=== PATIENT | female | born 1975 | race Caucasian/White ===

== ENCOUNTER 2018-03-20 22:10 | Emergency (ER) | payer OTHER ==
[~2018-03-20] VITALS: Ht 157.5 cm; Wt 79.4 kg
[~2018-03-20 22:10] MED LIST: AVELOX400 M1 PO; BENTYL10 M1 PO; ESGIC 50-325-41 EACH PO; GLIPIZIDE ER10 M1 PO; GLIPIZIDE ER5 MG PO; IBUPROFEN800 M1 PO; JANUMET 50-1,01 EACH PO; KEFLEX250 M1 PO; LEVOCETIRIZINE D5 M1 PO; LISINOPRIL2.5 M1 PO; MIRENA1 EACH; NASONEX17 GM NASB; PANTOPRAZOLE SO40 M1 PO; PRAVASTATIN SOD20 M2 PO; PRAVASTATIN20 MG PO; PRINIVIL 5MG5 MG PO; REGLAN10 M1 PO; VITAMIN D2000 UNI1 PO; VITAMIN D32000 I1 PO; VITAMIN D50000 IU PO; ZOFRAN ODT4 M1 SL
[2018-03-20 22:16] VITALS: BP 121/81
[2018-03-20 22:52] LABS: ABSOLUTE BASOPHIL COUNT 0.1 /CUMM (0.0-0.2); ABSOLUTE EOSINOPHIL COUNT 0 /CUMM (0.0-0.7); ABSOLUTE GRANULOCYTE CT 9.5 /CUMM (1.4-6.5); ABSOLUTE LYMPH COUNT 2.8 /CUMM (1.2-3.4); ABSOLUTE MONOCYTE COUNT 0.3 /CUMM (0.10-0.60); BASOPHIL % 0.5 % (0.0-2.0); EOSINOPHIL % 0.3 % (0-5); GRANULOCYTE % 74.8 % (42.2-75.2); HEMATOCRIT 38.6 % (37-47); MEAN CORPUSCULAR HGB 30.5 PG (27.0-31.0); MEAN CORPUSCULAR HGB CONC 34.2 G/DL (33.0-37.0); MEAN CORPUSCULAR VOLUME 89.3 FL (81.0-99.0); MEAN PLATELET VOLUME 7.5 FL (7.4-10.4); PLATELET COUNT 327 /CUMM (130-400); RBC DISTRIBUTION WIDTH 12.8 % (11.5-14.5); RED BLOOD CELL CT 4.32 /CUMM (4.20-5.40); WHITE BLOOD CELL COUNT 12.8 /CUMM (4.8-10.8)
--- NOTE | 2018-03-20 23:38 | ED GENERAL ADULT ---
History of Present Illness General Chief Complaint: General Adult Stated Complaint: PT THINKS SHE IS DEHYDRATED Source: patient Exam Limitations: no limitations Vital Signs & Intake/Output Vital Signs & Intake/Output Vital Signs Date Time Temp Pulse Resp B/P B/P Pulse O2 O2 Flow FiO2 Mean Ox Delivery Rate 03/20 2242 Room Air 03/20 2216 96.3 96 18 121/81 98 Room Air ED Intake and Output 03/21 0000 03/20 1200 Intake Total 1000 Output Total Balance 1000 Intake, IV 1000 Patient 175 lb Weight Weight Reported by Patient Measurement Method Allergies Coded Allergies: Penicillins (NAUSEA 01/23/16) erythromycin base (NAUSEA 01/23/16) Reconcile Medications Butalb/Acetaminophen/Caffeine (Esgic 50-325-40 MG Tablet) 50 MG-325 MG-40 MG TABLET 1 CAP PO Q6H PRN HEADACHE Cholecalciferol (Vitamin D3) (Vitamin D) 2,000 UNIT TABLET 1 TAB PO DAILY SUPPLEMENT (Reported) Dicyclomine Hydrochloride (Bentyl) 10 MG CAPSULE 1-2 CAP PO TID ABD SPASMS Glipizide (Glipizide ER) 10 MG TAB.ER.24 1 TAB PO BID DM (Reported) Ibuprofen 800 MG TABLET 1 TAB PO PRN PAIN (Reported) Levocetirizine Dihydrochloride 5 MG TABLET 1 TAB PO QPM PRN ALLERGIES ( Reported) Levonorgestrel (Mirena) 20 MCG/24 HOUR (5 YEARS) IUD CONTROL - IUD ( Reported) Lisinopril 2.5 MG TABLET 1 TAB PO DAILY BP (Reported) Magnesium Oxide 400 MG TABLET 1 TAB PO DAILY hypomag Metoclopramide HCl (Reglan) 10 MG TABLET 1 TAB PO 4 TIMES/DAY PRN NAUSEA 30 minutes before meals and bedtime Moxifloxacin HCl (Avelox) 400 MG TABLET 1 TAB PO DAILY PNEUMONIA Ondansetron (Zofran Odt) 4 MG TAB.RAPDIS 1 TAB SL TID PRN nausea Pantoprazole Sodium 40 MG TABLET.DR 1 TAB PO DAILY GI (Reported) Pravastatin Sodium 20 MG TABLET 1 TAB PO DAILY CHOLESTEROL (Reported) Sitagliptin Phos/Metformin HCl (Janumet 50-1,000 MG Tablet) 50 MG-1,000 MG TABLET 1 TAB PO BID DM (Reported) Triage Note: PT FROM HOME C/O OF DEHYDRATION?? PT STATES "IM WEAK, I VOMMITED ONCE, I HAVE HEART BURN, I HAVE ACID REFLUX, RAE BEEN DRINKING WATER AND A BAGEL, ONLY A COUPLE OF BITES" "I THINK I NEED AN IV" Triage Nurses Notes Reviewed? yes Onset: Gradual Duration: hour(s): Timing: constant : No Patient currently breastfeeds: No HPI: 42-year-old female with a history of hypertension, hyperlipidemia, diabetes, GERD presenting with nausea, 1-2 episodes of vomiting, and 1-2 episodes of loose stools since this morning. She has had decreased p.o. intake, was only able to eat a few bites of a bagel and some water today. States that multiple people at her job have been sick with similar symptoms. Also feels like her GERD is acting up. She states that she feels dehydrated and would like IV fluids. Denies fevers, chest pain, shortness of breath, abdominal pain, bloody stools, melena, dysuria. No recent travel. No foul foods. (Kelli Aguero) Past History Travel History Traveled to [place] past 21 day No Medical History Any Pertinent Medical History? see below for history Neurological: NONE EENT: NONE Cardiovascular: hypertension, HIGH CHOLESTEROL Respiratory: NONE Gastrointestinal: GERD Hepatic: NONE Renal: NONE Musculoskeletal: CHRONIC BACK PAIN Psychiatric: NONE Endocrine: diabetes Blood Disorders: NONE Cancer(s): NONE MUNITIONS HANDLER/Reproductive: NONE, MIRENA Surgical History Surgical History: cholecystectomy Psychosocial History What is your primary language Albanian Tobacco Use: Quit >30 days ago ETOH Use: denies use Illicit Drug Use: denies illicit drug use Family History Hx Contributory? No (Kelli Aguero) Review of Systems Review of Systems Constitutional: Reports: no symptoms. EENTM: Reports: no symptoms. Respiratory: Reports: no symptoms. Cardiovascular: Reports: no symptoms. GI: Reports: see HPI. Genitourinary: Reports: no symptoms. Musculoskeletal: Reports: no symptoms. Skin: Reports: no symptoms. Neurological/Psychological: Reports: no symptoms. Hematologic/Endocrine: Reports: no symptoms. Immunologic/Allergic: Reports: no symptoms. All Other Systems: Reviewed and Negative (Kelli Aguero) Physical Exam Physical Exam General Appearance: well developed/nourished, no apparent distress, alert, awake Comments: Gen.: Well-nourished, well-developed, no acute distress. Head: Normocephalic, atraumatic. Eyes: Normal inspection bilaterally Ears: Normal inspection bilaterally Nose: Normal inspection Neck: Normal inspection Lungs: clear to auscultation bilaterally, normnal breath sounds Heart: regular rate and rhythm Abdomen: soft and non-tender Extremities: Normal inspection Neurologic: alert and oriented x3, steady gait Skin: warm and dry Psychiatric: Normal mood and affect, no apparent delusions or hallucinations, behavior appropriate Core Measures ACS in differential dx? No CVA/TIA Diagnosis: No Sepsis Present: No Sepsis Focused Exam Completed? No (Serena KAUR,Kelli) Progress Differential Diagnoses I considered the following diagnoses in my evaluation of the patient: [Viral gastroenteritis versus food poisoning versus GERD, will concern for acute abdomen] Plan of Care: Orders Procedure Date/time Status Add-on Test (ER Only) 03/20 2323 Active LIPASE 03/20 2239 Complete PHOSPHORUS 03/20 2228 Complete MAGNESIUM 03/20 2228 Complete HUMAN BETA HCG SCREEN 03/20 2228 Complete COMPREHENSIVE METABOLIC PANEL 03/20 2228 Complete CBC WITHOUT DIFFERENTIAL 03/20 2228 Complete Laboratory Tests 03/20/182238: Anion Gap 11, Estimated GFR > 60, BUN/Creatinine Ratio 16.0, Glucose 169 H, Calcium 9.7, Phosphorus 3.4, Magnesium 1.4 L, Total Bilirubin 0.8, AST 34, ALT 81 H, Alkaline Phosphatase 92, Total Protein 7.2, Albumin 4.3, Globulin 2.9, Albumin/Globulin Ratio 1.5, Lipase 51, Total Beta HCG NEGATIVE, CBC w Diff NO MAN DIFF REQ, RBC 4.32, MCV 89.3, MCH 30.5, MCHC 34.2, RDW 12.8, MPV 7.5, Gran % 74.8, Lymphocytes % 22.2, Monocytes % 2.2, Eosinophils % 0.3, Basophils % 0.5, Absolute Granulocytes 9.5 H, Absolute Lymphocytes 2.8, Absolute Monocytes 0.3, Absolute Eosinophils 0, Absolute Basophils 0.1 Labs show mild leukocytosis to 12. Likely with viral gastroenteritis. Labs also with mild hypomagnesemia. She reports feeling better after IV fluids, Reglan, Pepcid, GI cocktail. She was able to tolerate p.o. without difficulty. She is requesting to be discharged home. Given Rx Zofran and magnesium supplement. Counseled on supportive care and strict return precautions. She will follow-up with her PMD. Initial ED EKG: none (Kelli Aguero) Departure Departure Disposition: HOME OR SELF CARE Condition: Stable Clinical Impression Primary Impression: Nausea vomiting and diarrhea Referrals: Pamela Mallory APRN (PCP/Family) Additional Instructions: Use Zofran as needed for nausea. Eat small meals as tolerable. Begin taking a magnesium supplement daily. Follow-up with your primary care provider for reevaluation. Return to the emergency department for any new or worsening symptoms. Departure Forms: Customer Survey General Discharge Information Prescriptions: Current Visit Scripts Ondansetron (Zofran Odt) 1 TAB SL TID PRN nausea #20 TAB Magnesium Oxide 1 TAB PO DAILY #30 TAB (Kelli Aguero) PA/TREE EXPERT Co-Sign Statement Statement: ED Attending supervision documentation- I saw and evaluated the patient. I have also reviewed all the pertinent lab results and diagnostic results. I agree with the findings and the plan of care as documented in the PA's/TREE EXPERT's documentation. x I have reviewed the ED Record and agree with the PA's/TREE EXPERT's documentation. [] Additions or exceptions (if any) to the PAs/TREE EXPERT's note and plan are summarized below: [] (Roxanna AMADOR,Ed) Critical Care Note Critical Care Note Critical Care Time: non-applicable (Kelli Aguero)
[2018-03-21] MEDS ORDERED: ZOFRAN ODT4 M1 SL (00:39)
[2018-03-21] MEDS ORDERED: MAGNESIUM OXID400 M1 PO (00:39)
== END 2018-03-21 00:49 ==
LOC: ERH 22:10
PROVIDERS: Physician Assistant
DX: R11.2 Nausea with vomiting, unspecified (principal); R19.7 Diarrhea, unspecified; I10 Essential (primary) hypertension; E78.00 Pure hypercholesterolemia, unspecified; K21.9 Gastro-esophageal reflux disease without esophagitis; E11.9 Type 2 diabetes mellitus without complications; Z87.891 Personal history of nicotine dependence
CPT/HCPCS: 96361; 96374; 96375; J2405